=== PATIENT | female | born 1990 | race Caucasian/White ===

== ENCOUNTER → 2016-07-15 | Outpatient (CLI) | payer OTHER ==
[2016-05-03 18:22] VITALS: BP 114/67
[~2016-07-15] MED LIST: D5 1/2 NS 1000ML W PITOCIN 20 U/L 1,000 ML IV ONE
[2016-07-15 12:56] LABS: BASOPHILS # (AUTO) 0.1 X10^3/uL (0.0-0.1); BASOPHILS % (AUTO) 0.8 % (0.2-1.0); EOSINOPHILS # (AUTO) 0.1 x10^3/uL (0.0-0.2); EOSINOPHILS % (AUTO) 0.7 % (0.9-2.9); HEMATOCRIT 35.8 % (36.0-47.0); HEMOGLOBIN 12.3 g/dL (12.0-16.0); LYMPHOCYTES # (AUTO) 2.2 X10^3/uL (1.3-2.9); LYMPHOCYTES % (AUTO) 18.5 % (21.0-51.0); MEAN CORPUSCULAR HEMOGLOBIN 31.6 pg (27.0-34.0); MEAN CORPUSCULAR HGB CONC 34.4 g/dL (33.0-35.0); MEAN CORPUSCULAR VOLUME 92.1 fL (80.0-100.0); MEAN PLATELET VOLUME 8.4 fL (7.4-11.0); MONOCYTES # (AUTO) 0.8 x10^3/uL (0.3-0.8); MONOCYTES % (AUTO) 6.5 % (0.0-13.0); NEUTROPHILS # (AUTO) 8.9 x10^3/uL (2.2-4.8); NEUTROPHILS % (AUTO) 73.5 % (42.0-75.0); PLATELET COUNT 288 X10^3/uL (150.0-450.0); RED BLOOD COUNT 3.89 X10^6/uL (3.5-5.4); RED CELL DISTRIBUTION WIDTH 13.6 % (11.6-16.5); WHITE BLOOD COUNT 12.1 X10^3/uL (3.6-10.0)
[2016-07-15 12:57] LABS: BILIRUBIN,URINE NEGATIVE (NEGATIVE); BLOOD/HEMOGLOBIN,URINE 2+ (NEGATIVE); GLUCOSE, URINE NEGATIVE (NEGATIVE); KETONES,URINE NEGATIVE (NEGATIVE); LEUKOCYTE ESTERASE ,URINE 3+ (NEGATIVE); NITRITES,URINE NEGATIVE (NEGATIVE); PROTEIN,URINE 1+ (NEGATIVE); UROBILINOGEN,URINE NORMAL (NORMAL)
[2016-07-15 13:11] LABS: APPEARANCE,URINE SLIGHTLY HAZY (CLEAR); COLOR,URINE YELLOW (YELLOW); SQUAMOUS EPITHELIAL CELL,UR FEW /HPF (NEGATIVE)
[2016-07-15 13:12] LABS: BACTERIA,URINE 1+ /HPF (NEGATIVE)
[2016-07-15 13:22] LABS: BLOOD UREA NITROGEN 10 mg/dL (7-18); CALCIUM 8.4 mg/dL (8.5-10.1); CARBON DIOXIDE 21.2 mmol/L (21-32); CHLORIDE 104 mmol/L (98-107); CREATININE 0.47 mg/dL (0.55-1.02); GLUCOSE 74 mg/dL (65-99); SODIUM 138 mmol/L (136-145); eGFR BLACK RACES > 60 (>60); eGFR NON BLACK RACES > 60 (>60)
== END ==
LOC: LAB 12:02
PROVIDERS: ATTEND Specialist
DX: Z01.818 Encounter for other preprocedural examination (principal); Z34.83 Encounter for supervision of other normal pregnancy, third trimester
CPT/HCPCS: 36415; 80048; 81001; 85025; 86592; 86850; 86900; 86901; 87086

== ENCOUNTER 2016-07-17 06:02 | Inpatient (IN) | payer OTHER ==
[2016-07-17] MEDS ORDERED: D5 1/2 NS 1000 ML 1,000 ML IV ONE (06:40)
[2016-07-17] MEDS ORDERED: D5LR 1000ML W PITOCIN 10 U/L 1,000 ML IV ONE (06:40)
--- NOTE | 2016-07-17 07:03 | DR.OB ---
OB Quick Note - Assessment/Plan Assessment/Plan: L&D 07/17/16 at 6:50am S-No complaint. O-Afebrile,VSS DLK=[id number] with good LTV, +accel, no decel. CTX=none CVX=2cm/50%/-1/VTX AROM with clear fluid. IUPC and FSE placed. A-IUP at 38 5/7 weeks for induction IUGR Epilepsy P-Begin pitocin induction Anticipate
[2016-07-17] MEDS ORDERED: PITOCIN 10 UNITS in D5 LR 1000 ML 1,000 ML IV PRN (07:37)
[2016-07-17] MEDS ORDERED: REGLAN INJ 10 MG VIAL IVP PRN ×2 (07:37→17:20)
[2016-07-17] MEDS ORDERED: PITOCIN IVP ONE (07:37)
[2016-07-17] MEDS ORDERED: PHENERGAN INJ 25 MG IV PRN ×3 (07:37→17:20)
[2016-07-17] MEDS ORDERED: MORPHINE SULFATE INJ 2 MG IVP PRN (07:37)
[2016-07-17] MEDS: D5 1/2 NS 1000 ML 1,000 ML IV SCH ×2 (07:40→17:21)
[2016-07-17] MEDS: NUBAIN INJ 200 MG VIAL MULTIDOSE IVP PRN ×3 (08:26→12:26)
[2016-07-17] MEDS ORDERED: NUBAIN INJ 10 ONE ×3 (08:26→12:24)
[2016-07-17] MEDS ORDERED: LR 1000 ML IV 1,000 ML IV ONE ×2 (09:40→13:46)
--- NOTE | 2016-07-17 11:57 | DR.OB ---
OB Quick Note - Assessment/Plan Assessment/Plan: L&D 07/17/16 at 11:50am Pitocin=10mu/min. S-No complaint except pain with CTX. O-Afebrile,VSS BOS=[id number] with good LTV, +accel, no decel. CTX=q 1 1/2 to 2 min., about 50-65mmHg CVX=3-4cm/50%/-1/VTX A-IUP at 38 5/7 weeks for induction IUGR Epilepsy P-Cont. pitocin induction Anticipate
[2016-07-17] MEDS ORDERED: MORPHINE SULFATE INJ 4 MG ONE (13:34)
[2016-07-17] MEDS ORDERED: FENTANYL INJ 100 mcg ONE (13:47)
[2016-07-17] MEDS ORDERED: NAROPIN EPIDURAL 0.2% + FENTANYL 90MCG 60 ML EPI ONE (13:47)
[2016-07-17] MEDS: NAROPIN EPIDURAL 0.2% 97 ML with FENTANYL INJ 250 mcg 150 MCG EPI SCH ×4 (14:12→14:13)
[2016-07-17] MEDS ORDERED: PITOCIN ONE (15:32)
[2016-07-17] MEDS ORDERED: MOTRIN TAB 800 MG PO PRN (16:07)
--- NOTE | 2016-07-17 16:50 | DR.OB ---
OB Quick Note - Assessment/Plan Assessment/Plan: Delivery Note [employer] T[employer] 07/17/16 at 4:00pm Patient complete and pushing. Head delivered over intact perineum. No nuchal cord. Nose and mouth bulb suctioned. Body delivered over intact perineum. Cord clamped x 2 and cut. handed to attendant. Cord sent for gases. Placenta delivered spontaneously / intact / 3 vessel cord. No CVX / vaginal / perineal tears. Viable female infant delivered VTX/OA, wt=6'2" and 9/9, stable to NBN. Mother stable to RR. [id number].
[2016-07-17] MEDS ORDERED: D5 1/2 NS 1000 ML 1,000 ML with PITOCIN 20 UNITS IV SCH ×2 (17:00)
[2016-07-17] MEDS ORDERED: NICODERM PATCH 21 MG/24 HR TD ONE (17:11)
[2016-07-17] MEDS ORDERED: MILK OF MAGNESIA PO PRN (17:20)
[2016-07-17] MEDS ORDERED: DERMOPLAST SPRAY TOP PRN (17:20)
[2016-07-17] MEDS ORDERED: AMBIEN PO PRN (17:20)
[2016-07-17] MEDS ORDERED: ADACEL TDaP IM ONE ×2 (17:20→20:16)
[2016-07-17] MEDS: NICODERM PATCH 21 MG/24 HR TD SCH (17:23)
[2016-07-17] MEDS: ZANTAC PO SCH (20:32)
[2016-07-17] MEDS: MOTRIN TAB 800 MG PO PRN (20:32)
[2016-07-17] MEDS ORDERED: TRILEPTAL PO SCH (21:00)
[2016-07-18] MEDS ORDERED: D5 1/2 NS 1000 ML 1,000 ML with PITOCIN 20 UNITS IV SCH ×2 (01:00)
[2016-07-18 05:25] LABS: HEMATOCRIT 32.9 % (36.0-47.0); HEMOGLOBIN 11.2 g/dL (12.0-16.0)
[2016-07-18] MEDS ORDERED: TRILEPTAL PO SCH (07:00)
[2016-07-18] MEDS ORDERED: PRENATAL PLUS PO SCH (09:00)
[2016-07-18] MEDS ORDERED: PATIENT'S HOME MEDICATION PO SCH (09:00)
[2016-07-18] MEDS: NICODERM PATCH 21 MG/24 HR TD SCH (09:49)
[2016-07-18] MEDS: ZANTAC PO SCH (09:49)
[2016-07-18] MEDS: MOTRIN TAB 800 MG PO PRN (11:02)
[2016-07-18 13:06] VITALS: BP 132/82
== END 2016-07-18 17:55 | disposition home or self-care (01) | DRG 775 ==
LOC: LD 06:02 → MED/SURG 17:21
PROVIDERS: ADMIT Specialist; ATTEND Specialist
PROC: 10E0XZZ Delivery of Products of Conception, External Approach (ICD-10-PCS; principal; 2016-07-17)
PROC: 10907ZC Drainage of Amniotic Fluid, Therapeutic from Products of Conception, Via Natural or Artificial Opening (ICD-10-PCS; 2016-07-17)
PROC: 3E033VJ Introduction of Other Hormone into Peripheral Vein, Percutaneous Approach (ICD-10-PCS; 2016-07-17)
PROC: 00HU33Z Insertion of Infusion Device into Spinal Canal, Percutaneous Approach (ICD-10-PCS; 2016-07-17)
PROC: 3E0234Z Introduction of Serum, Toxoid and Vaccine into Muscle, Percutaneous Approach (ICD-10-PCS; 2016-07-17)
DX: O26.893 Other specified pregnancy related conditions, third trimester (principal); Z37.0 Single live birth; O36.5930 Maternal care for other known or suspected poor fetal growth, third trimester, not applicable or unspecified; Z3A.38 38 weeks gestation of pregnancy; Z23 Encounter for immunization
CPT/HCPCS: 09167; 36415; 59409; 80048; 81001; 85014; 85018; 85025; 86592; 86850; 86900; 86901; 87086; A4216; A4222; S0197; J2270; J2300; J2590; J3010; J7042; J7120